=== PATIENT | male | born 1970 | race Caucasian/White ===

== ENCOUNTER 2017-06-04 13:51 | Emergency (ER) | payer OTHER ==
--- NOTE | 2017-06-04 14:32 | ED NURSING NOTES ---
Clinical Report - Nurses [facility] [address] [place] [address] 06/04/2017 13:54 Patient: JESSICA CARROLL TRIAGE Triage time 14:00 Jun 04 2017. Acuity: LEVEL 4. Chief Complaint: COUGH and (with headache). Alert. No acute distress. SEPSIS SCREEN: Sepsis Screen: negative. Infection suspected/documented. --14:06 Shawna Lee R.N. 14:00 06/04/17. BP: 174/94. HR: 63. RR: 17. O2 saturation: 100%. Temp: 97.9 F. Pain level now: 0/10. --14:06 Shawna Lee R.N. Weight: 90.7 kg stated. Height/Length: 67 inches Per Patient. BMI: 31.3. --14:01 Shawna Lee R.N. Medications None. --14:01 Shawna Lee R.N. Medication/allergy information source: the patient. --14:06 Shawna Lee R.N. Allergies None. --14:01 Shawna Lee R.N. History Arrived by private vehicle. Historian: patient. Onset. (10 days ago). He has had a headache. 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 PAST MEDICAL HX: Hypertension. Immunizations: up-to-date. SOCIAL HX: Current every day smoker (cigarette). Occasional alcohol use. History of drug use: marijuana. ABUSE ASSESSMENT: No report of abuse. SELF HARM ASSESSMENT: A self harm assessment was performed. The patient answered "no" to the question "Do you have thoughts of harming or killing yourself?". FALL RISK ASSESSMENT: Fall risk assessment completed. No fall risk identified. NUTRITIONAL RISK ASSESSMENT: The nutritional risk assessment revealed no deficiencies. FUNCTIONAL ASSESSMENT: Functional assessment: no impairments noted. LEARNING NEEDS ASSESSMENT: The learning needs assessment revealed no barriers. SKIN INTEGRITY ASSESSMENT: Skin integrity risk assessment completed. No skin integrity risk identified. --14:06 Shawna Lee R.N. PROBLEMS: Hypertension. --14:01 Shawna Lee R.N. ADDITIONAL SURGERIES: no known surgeries. Interventions ID band on patient. To treatment room. --14:06 Shawna Lee R.N. PHYSICAL ASSESSMENT Ambulatory to room. GENERAL / NEURO / PSYCH: Alert. Oriented X 4. Appears in no acute distress. HEENT: Pupils equal, round and reactive to light. Mouth within normal limits upon inspection. Mucous membranes are pink. RESPIRATORY: Respirations not labored. CVS: Capillary refill less than 2 seconds. SKIN: Skin is warm and dry. Normal skin turgor. --14:06 Shawna Lee R.N. NURSING PROGRESS NOTES Call light placed in reach. Side rails up x 1. Bed placed in lowest position. Brakes of bed on. Patient ready for evaluation- chart flagged. Patient waiting for evaluation. --14:06 Shawna Lee R.N. DISPOSITION / DISCHARGE No learning barriers present. Discharge instructions provided and reviewed with the patient. Reviewed medication(s) side effects, precautions, dosing and course information. Prescription(s) given to the patient. Patient verbalized understanding. Written instructions provided in German. The patient was discharged by the nurse practitioner. He was discharged home. He left the Emergency Department ambulatory and via private vehicle. Patient driving. --14:44 Shawna Lee R.N. 14:43 06/04/17. BP: deferred. HR: deferred. RR: deferred. O2 saturation: deferred. Temp: deferred. Pain level now deferred. --14:44 Shawna Lee R.N. Locked/Released at 06/04/2017 23:37 by Shawna Lee R.N.
--- NOTE | 2017-06-04 14:32 | ED CLINICAL REPORT ---
Clinical Report - Physicians/Mid Levels [facility] [address] [place] [address] 06/04/2017 13:54 Patient: JESSICA CARROLL Time Seen: 14:09; initial patient contact, initial documentation, patient care assumed. Arrived- By private vehicle. Historian- patient. HISTORY OF PRESENT ILLNESS Chief Complaint: COUGH. This started about 10 days ago and is still present. The patient has had a cough, a sore throat, nasal congestion, sinus pressure and sinus drainage. He has had sputum production (started with thick colored stuff, now hardly anything comes up). No difficulty breathing, chest discomfort or pain, fever or muscle aches. No nasal discharge or ear pain. Additional history - No known contact with a sick individual. No recent travel. Similar symptoms previously: None. Recent medical care: Not recently seen/assessed. REVIEW OF SYSTEMS The patient has had a pressure-like frontal headache. All systems otherwise negative, except as recorded above. PAST HISTORY See nurses notes. PROBLEMS: Hypertension. --14:01 Page-Shawna Rodriguez R.N. ADDITIONAL SURGERIES: no known surgeries. SOCIAL HISTORY Heavy tobacco smoker. Occasional alcohol use. History of occasional drug use: marijuana. Not exposed to second-hand smoke at home. No recent travel. Is a local resident. FAMILY HISTORY No significant family medical history. ADDITIONAL NOTES The nursing notes have been reviewed with agreement regarding the chief complaint, HPI, ROS, PMH and patient medications and allergies. PHYSICAL EXAM Vital Signs: 06/04/2017 14:00 BP: 174/94. HR: 63. RR: 17. O2 saturation: 100%. Temp: 97.9 F. Pain level now: 0/10. Have been reviewed as abnormal and appear to be correct. Hypertensive. Heart rate normal. Respiratory rate normal. Temperature normal. Oxygen saturation normal. Appearance: Alert. No acute distress. Head: Tenderness present to percussion/palpation of the sinuses: mild right and left frontal tenderness. Eyes: Pupils equal, round and reactive to light. Eyes normal inspection. ENT: Ears normal. Nose abnormal. Pharynx abnormal. Mild generalized pharyngeal erythema (with post nasal drip). No pharyngeal vesicles or ulcerations. No right tonsillar exudate, right tonsillar abscess, right tonsillar swelling, right peritonsillitis, left tonsillar exudate, left tonsillar abscess, left tonsillar swelling or left peritonsillitis. Uvula midline. Neck: Normal inspection. Neck supple. CVS: Normal heart rate and rhythm. Heart sounds normal. Pulses normal. Respiratory: No respiratory distress. Breath sounds abnormal. Inspiratory mild bilateral wheezes diffusely. Back: Normal inspection. Skin: Skin warm and dry. Normal skin color. No rash. Normal skin turgor. Extremities: Extremities exhibit normal ROM. No lower extremity edema. Neuro: Oriented X 3. No motor deficit. No sensory deficit. PROGRESS AND PROCEDURES Course of Care: tx options discussed with doing chest xray, pt decided no xray. Patient counseled in person regarding the patient's stable condition and diagnosis. Differential Diagnosis: Other possible considerations: flu, uri, viral illness, sinusitis, pnuemonia, bronchitis, copd, emphysema. Above considerations are based on history and physical exam. Differential diagnosis was discussed with patient. Disposition: Discharged home in good and unchanged condition (14:31). Condition: good and stable. CLINICAL IMPRESSION Acute frontal sinusitis INSTRUCTIONS Drink plenty of fluids for the next 24 hours until better. Do not smoke. Warnings: GENERAL WARNINGS: Return or contact your physician immediately if your condition worsens or changes unexpectedly, if not improving as expected, or if other problems arise. Specifically return if problem worsens. Prescription Medications: Albuterol HFA oral inhaler: inhale 1 to 2 puffs every four to six hours as needed for difficulty breathing. Dispense one (1) unit. No refills. Nasacort nasal spray: 2 sprays in each nostril once daily as needed for allergies. Dispense one (1) unit. No refills. Substitution is permissible. Augmentin 875 mg: take 1 tablet orally every 12 hours for 10 days. No refill. Follow-up: Follow up with your doctor in about five days as needed. Call for an appointment. Summary of care provided to patient. Screening today revealed the patient's blood pressure to be in the hypertensive range. The patient should follow up with a primary care provider for blood pressure management. Understanding of the discharge instructions verbalized by patient. Follow-up with: Cirilo Anand MD, [facility], , [address], [address], [place], [facility]; Miguel Palmer MD, [facility], , [address] [place], , [place], [address]; Deonte Cortez MD, Family Practice, , [facility], [address] [place], [place], [address]; Cristhian Godoy MD, [facility], , [facility], [address] [place] [address] [address], [place], [address]; Dann Owens MD, [facility], , [facility], [address] [place] [address] [address], [place], [address]; Marichuy Grande MD, [facility], , [facility], [address] [place] [address] [address], [place], [address]; [facility], [facility], , [address] [place] [address]; Miladis Terry PA-C, [facility], , [facility], [address] [place] [address], [address], [place] [address]; [facility], [facility], , [address] [place] [address], [address], [place] [address] Follow up in about three days even if well. Call for an appointment. Summary of care provided to patient. (Electronically signed by Kelli Costa A.R.N.P. 06/04/2017 17:46)
--- NOTE | 2017-06-04 14:32 | ED CLINICAL REPORT ---
Clinical Report - Physicians/Mid Levels [facility] [address] [place] [address] 06/04/2017 13:54 Patient: JESSICA CARROLL Time Seen: 14:09; initial patient contact, initial documentation, patient care assumed. Arrived- By private vehicle. Historian- patient. HISTORY OF PRESENT ILLNESS Chief Complaint: COUGH. This started about 10 days ago and is still present. The patient has had a cough, a sore throat, nasal congestion, sinus pressure and sinus drainage. He has had sputum production (started with thick colored stuff, now hardly anything comes up). No difficulty breathing, chest discomfort or pain, fever or muscle aches. No nasal discharge or ear pain. Additional history - No known contact with a sick individual. No recent travel. Similar symptoms previously: None. Recent medical care: Not recently seen/assessed. REVIEW OF SYSTEMS The patient has had a pressure-like frontal headache. All systems otherwise negative, except as recorded above. PAST HISTORY See nurses notes. PROBLEMS: Hypertension. --14:01 Page-Shawna Rodriguez R.N. ADDITIONAL SURGERIES: no known surgeries. SOCIAL HISTORY Heavy tobacco smoker. Occasional alcohol use. History of occasional drug use: marijuana. Not exposed to second-hand smoke at home. No recent travel. Is a local resident. FAMILY HISTORY No significant family medical history. ADDITIONAL NOTES The nursing notes have been reviewed with agreement regarding the chief complaint, HPI, ROS, PMH and patient medications and allergies. PHYSICAL EXAM Vital Signs: 06/04/2017 14:00 BP: 174/94. HR: 63. RR: 17. O2 saturation: 100%. Temp: 97.9 F. Pain level now: 0/10. Have been reviewed as abnormal and appear to be correct. Hypertensive. Heart rate normal. Respiratory rate normal. Temperature normal. Oxygen saturation normal. Appearance: Alert. No acute distress. Head: Tenderness present to percussion/palpation of the sinuses: mild right and left frontal tenderness. Eyes: Pupils equal, round and reactive to light. Eyes normal inspection. ENT: Ears normal. Nose abnormal. Pharynx abnormal. Mild generalized pharyngeal erythema (with post nasal drip). No pharyngeal vesicles or ulcerations. No right tonsillar exudate, right tonsillar abscess, right tonsillar swelling, right peritonsillitis, left tonsillar exudate, left tonsillar abscess, left tonsillar swelling or left peritonsillitis. Uvula midline. Neck: Normal inspection. Neck supple. CVS: Normal heart rate and rhythm. Heart sounds normal. Pulses normal. Respiratory: No respiratory distress. Breath sounds abnormal. Inspiratory mild bilateral wheezes diffusely. Back: Normal inspection. Skin: Skin warm and dry. Normal skin color. No rash. Normal skin turgor. Extremities: Extremities exhibit normal ROM. No lower extremity edema. Neuro: Oriented X 3. No motor deficit. No sensory deficit. PROGRESS AND PROCEDURES Course of Care: tx options discussed with doing chest xray, pt decided no xray. Patient counseled in person regarding the patient's stable condition and diagnosis. Differential Diagnosis: Other possible considerations: flu, uri, viral illness, sinusitis, pnuemonia, bronchitis, copd, emphysema. Above considerations are based on history and physical exam. Differential diagnosis was discussed with patient. Disposition: Discharged home in good and unchanged condition (14:31). Condition: good and stable. CLINICAL IMPRESSION Acute frontal sinusitis INSTRUCTIONS Drink plenty of fluids for the next 24 hours until better. Do not smoke. Warnings: GENERAL WARNINGS: Return or contact your physician immediately if your condition worsens or changes unexpectedly, if not improving as expected, or if other problems arise. Specifically return if problem worsens. Prescription Medications: Albuterol HFA oral inhaler: inhale 1 to 2 puffs every four to six hours as needed for difficulty breathing. Dispense one (1) unit. No refills. Nasacort nasal spray: 2 sprays in each nostril once daily as needed for allergies. Dispense one (1) unit. No refills. Substitution is permissible. Augmentin 875 mg: take 1 tablet orally every 12 hours for 10 days. No refill. Follow-up: Follow up with your doctor in about five days as needed. Call for an appointment. Summary of care provided to patient. Screening today revealed the patient's blood pressure to be in the hypertensive range. The patient should follow up with a primary care provider for blood pressure management. Understanding of the discharge instructions verbalized by patient. Follow-up with: Cirilo Anand MD, [facility], , [address], [address], [place], [facility]; Miguel Palmer MD, [facility], , [address] [place], , [place], [address]; Deonte Cortez MD, Family Practice, , [facility], [address] [place], [place], [address]; Cristhian Godoy MD, [facility], , [facility], [address] [place] [address] [address], [place], [address]; Dann Owens MD, [facility], , [facility], [address] [place] [address] [address], [place], [address]; Marichuy Grande MD, [facility], , [facility], [address] [place] [address] [address], [place], [address]; [facility], [facility], , [address] [place] [address]; Miladis Terry PA-C, [facility], , [facility], [address] [place] [address], [address], [place] [address]; [facility], [facility], , [address] [place] [address], [address], [place] [address] Follow up in about three days even if well. Call for an appointment. Summary of care provided to patient. (Electronically signed by Kelli Costa A.R.N.P. 06/04/2017 17:46)
--- NOTE | 2017-06-04 14:32 | ED NURSING NOTES ---
Clinical Report - Nurses [facility] [address] [place] [address] 06/04/2017 13:54 Patient: JESSICA CARROLL TRIAGE Triage time 14:00 Jun 04 2017. Acuity: LEVEL 4. Chief Complaint: COUGH and (with headache). Alert. No acute distress. SEPSIS SCREEN: Sepsis Screen: negative. Infection suspected/documented. --14:06 Shawna Lee R.N. 14:00 06/04/17. BP: 174/94. HR: 63. RR: 17. O2 saturation: 100%. Temp: 97.9 F. Pain level now: 0/10. --14:06 Shawna Lee R.N. Weight: 90.7 kg stated. Height/Length: 67 inches Per Patient. BMI: 31.3. --14:01 Shawna Lee R.N. Medications None. --14:01 Shawna Lee R.N. Medication/allergy information source: the patient. --14:06 Shawna Lee R.N. Allergies None. --14:01 Shawna Lee R.N. History Arrived by private vehicle. Historian: patient. Onset. (10 days ago). He has had a headache. 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 PAST MEDICAL HX: Hypertension. Immunizations: up-to-date. SOCIAL HX: Current every day smoker (cigarette). Occasional alcohol use. History of drug use: marijuana. ABUSE ASSESSMENT: No report of abuse. SELF HARM ASSESSMENT: A self harm assessment was performed. The patient answered "no" to the question "Do you have thoughts of harming or killing yourself?". FALL RISK ASSESSMENT: Fall risk assessment completed. No fall risk identified. NUTRITIONAL RISK ASSESSMENT: The nutritional risk assessment revealed no deficiencies. FUNCTIONAL ASSESSMENT: Functional assessment: no impairments noted. LEARNING NEEDS ASSESSMENT: The learning needs assessment revealed no barriers. SKIN INTEGRITY ASSESSMENT: Skin integrity risk assessment completed. No skin integrity risk identified. --14:06 Shawna Lee R.N. PROBLEMS: Hypertension. --14:01 Shawna Lee R.N. ADDITIONAL SURGERIES: no known surgeries. Interventions ID band on patient. To treatment room. --14:06 Shawna Lee R.N. PHYSICAL ASSESSMENT Ambulatory to room. GENERAL / NEURO / PSYCH: Alert. Oriented X 4. Appears in no acute distress. HEENT: Pupils equal, round and reactive to light. Mouth within normal limits upon inspection. Mucous membranes are pink. RESPIRATORY: Respirations not labored. CVS: Capillary refill less than 2 seconds. SKIN: Skin is warm and dry. Normal skin turgor. --14:06 Shawna Lee R.N. NURSING PROGRESS NOTES Call light placed in reach. Side rails up x 1. Bed placed in lowest position. Brakes of bed on. Patient ready for evaluation- chart flagged. Patient waiting for evaluation. --14:06 Shawna Lee R.N. DISPOSITION / DISCHARGE No learning barriers present. Discharge instructions provided and reviewed with the patient. Reviewed medication(s) side effects, precautions, dosing and course information. Prescription(s) given to the patient. Patient verbalized understanding. Written instructions provided in Afghan. The patient was discharged by the nurse practitioner. He was discharged home. He left the Emergency Department ambulatory and via private vehicle. Patient driving. --14:44 Shawna Lee R.N. 14:43 06/04/17. BP: deferred. HR: deferred. RR: deferred. O2 saturation: deferred. Temp: deferred. Pain level now deferred. --14:44 Shawna Lee R.N. Locked/Released at 06/04/2017 23:37 by Shawna Lee R.N.
--- NOTE | 2017-06-04 23:37 | ED DISCHARGE INSTRUCTIONS ---
Patient: JESSICA CARROLL General Instructions [facility] VisitID: [id number] [place] [id number] 46y, M Registration Date/Time: 06/04/2017 Acute frontal sinusitis INSTRUCTIONS Drink plenty of fluids for the next 24 hours until better. Do not smoke. Warnings: GENERAL WARNINGS: Return or contact your physician immediately if your condition worsens or changes unexpectedly, if not improving as expected, or if other problems arise. Specifically return if problem worsens. Prescription Medications: Albuterol HFA oral inhaler: inhale 1 to 2 puffs every four to six hours as needed for difficulty breathing. Dispense one (1) unit. No refills. Nasacort nasal spray: 2 sprays in each nostril once daily as needed for allergies. Dispense one (1) unit. No refills. Substitution is permissible. Augmentin 875 mg: take 1 tablet orally every 12 hours for 10 days. No refill. Follow-up: Follow up with your doctor in about five days as needed. Call for an appointment. Summary of care provided to patient. Screening today revealed the patient's blood pressure to be in the hypertensive range. The patient should follow up with a primary care provider for blood pressure management. Understanding of the discharge instructions verbalized by patient. Follow-up with: Cirilo Anand MD, [facility], , [address], [address] [address]; Miguel Palmer MD, [facility], , [address] [place] [address]; Deonte Cortez MD, [facility], , [facility], [address] [place] [address]; Cristhian Godoy MD, [facility], , [facility], [address] [place] [address]; Dann Owens MD, [facility], , [facility], [address] [place] [address]; Marichuy Grande MD, [facility], , [facility], [address] [place] [address] [address] [address]; [facility], [facility], , [address] [place] [address]; Miladis Terry PA-C, [facility], , [facility], [address] [place] [address], [address], [place] [address]; [facility], [facility], , [address] [place] [address], [address], [place] [address] Follow up in about three days even if well. Call for an appointment. Summary of care provided to patient. ADDITIONAL INFORMATION Sinusitis [Abx Tx] The sinuses are air-filled spaces within the bones of the face. They connect to the inside of the nose. Sinusitis is an inflammation of the tissue lining the sinus cavity. Sinus inflammation can occur during a cold or hay-fever (allergies to pollens and other particles in the air) and cause symptoms of sinus congestion and fullness. A sinus infection causes fever, headache and facial pain. There is usually green or yellow drainage from the nose or into the back of the throat (post-nasal drip). Antibiotics are prescribed to treat this condition. Home Care: Drink plenty of water, hot tea, and other liquids to stay well hydrated. This thins the mucus and promotes sinus drainage. Apply heat to the painful areas of the face. Use a towel soaked in hot water. Or, administration clerk the shower and direct the hot spray onto your face. This is a good way to inhale warm water vapor and get heat on your face at the same time. (Cover your mouth and nose with your hands so you can still breathe as you do this.) Use a vaporizer with products such as Vicks VapoRub (contains menthol) at night. Suck on peppermint, menthol or eucalyptus hard candies during the day. An expectorant containing guaifenesin (such as Robitussin), helps to thin the mucus and promote drainage from the sinuses. Ogpm-htc-[id number] decongestants may be used unless a similar medicine was prescribed. Nasal sprays work the fastest. Use one that contains phenylephrine (Mitchell-synephrine, Sinex and others) or oxymetazoline (Afrin). First blow the nose gently to remove mucus, then apply the drops. Do not use these medicines more often than directed on the label or for more than three days or symptoms may worsen. You may also use tablets containing pseudoephedrine (Sudafed). Many sinus remedies combine ingredients, which may increase side effects. Read the labels or ask the pharmacist for help. NOTE: Persons with high blood pressure should not use decongestants. They can raise blood pressure. Antihistamines are useful if allergies are a cause of your sinusitis. The mildest one is chlorpheniramine (available without a prescription). The dose for adults is 8-12mg three times a day. [NOTE: Do not use chlorpheniramine if you have glaucoma or if you are a man with trouble urinating due to an enlarged prostate.] Claritin (loratidine) is an antihistamine that causes less drowsiness and is a good alternative for daytime use. Do not use nasal rinses or irrigation during an acute sinus infection, unless advised by your doctor. Rinsing may spread the infection to other sinuses. You may use acetaminophen (Tylenol) or ibuprofen (Motrin, Advil) to control pain, unless another pain medicine was prescribed. [ NOTE: If you have chronic liver or kidney disease or ever had a stomach ulcer, talk with your doctor before using these medicines.] (Aspirin should never be used in anyone under 18 years of age who is ill with a fever. It may cause severe liver damage.) Finish the full course, even if you are feeling better after a few days. Follow Up with your doctor or this facility in one week or as instructed by our staff if not improving. Get Prompt Medical Attention if any of the following occur: Facial pain or headache becomes more severe Stiff neck Unusual drowsiness or confusion, or not acting like your normal self Swelling of the forehead or eyelids Vision problems including blurred or double vision Fever of 100.4F (38C) or higher, or as directed by your healthcare provider Seizure Albuterol Sulfate Pressurized inhalation, suspension What is this medicine? ALBUTEROL (al BYOO ter ole) is a bronchodilator. It helps open up the airways in your lungs to make it easier to breathe. This medicine is used to treat and to prevent bronchospasm. How should I use this medicine? This medicine is for inhalation through the mouth. Follow the directions on your prescription label. Take your medicine at regular intervals. Do not use more often than directed. Make sure that you are using your inhaler correctly. Ask you doctor or health care provider if you have any questions. Talk to your tool maintenance technician regarding the use of this medicine in children. Special care may be needed. What side effects may I notice from receiving this medicine? Side effects that you should report to your doctor or health family member caretaker as soon as possible: allergic reactions like skin rash, itching or hives, swelling of the face, lips, or tongue breathing problems chest pain feeling faint or lightheaded, falls high blood pressure irregular heartbeat fever muscle cramps or weakness pain, tingling, numbness in the hands or feet vomiting Side effects that usually do not require medical attention (report to your doctor or health family member caretaker if they continue or are bothersome): cough difficulty sleeping headache nervousness or trembling stomach upset stuffy or runny nose throat irritation unusual taste What may interact with this medicine? anti-infectives like chloroquine and pentamidine caffeine cisapride diuretics medicines for colds medicines for depression or for emotional or psychotic conditions medicines for weight loss including some herbal products methadone some antibiotics like clarithromycin, erythromycin, levofloxacin, and linezolid some heart medicines steroid hormones like dexamethasone, cortisone, hydrocortisone theophylline thyroid hormones What if I miss a dose? If you miss a dose, use it as soon as you can. If it is almost time for your next dose, use only that dose. Do not use double or extra doses. Where should I keep my medicine? Keep out of the reach of children. Store at room temperature between 15 and 30 degrees C (59 and 86 degrees F). The contents are under pressure and may burst when exposed to heat or flame. Do not freeze. This medicine does not work as well if it is too cold. Throw away any unused medicine after the expiration date. Inhalers need to be thrown away after the labeled number of puffs have been used or by the expiration date; whichever comes first. Ventolin HFA should be thrown away 12 months after removing from foil pouch. Check the instructions that come with your medicine. What should I tell my health care provider before I take this medicine? They need to know if you have any of the following conditions: diabetes heart disease or irregular heartbeat high blood pressure pheochromocytoma seizures thyroid disease an unusual or allergic reaction to albuterol, levalbuterol, sulfites, other medicines, foods, dyes, or preservatives or trying to get breast-feeding What should I watch for while using this medicine? Tell your doctor or health family member caretaker if your symptoms do not improve. Do not use extra albuterol. If your asthma or bronchitis gets worse while you are using this medicine, call your doctor right away. If your mouth gets dry try chewing sugarless gum or sucking hard candy. Drink water as directed. Triamcinolone Acetonide Nasal spray What is this medicine? TRIAMCINOLONE (trye am SIN oh lone) nasal spray is a corticosteroid. It is used to treat the nasal symptoms of seasonal and year round allergies. How should I use this medicine? This medicine is for use in the nose. Follow the directions on your prescription label. This medicine works best if used regularly. Do not use more often than directed. Make sure that you are using your nasal spray correctly. Ask you doctor or health care provider if you have any questions. Talk to your tool maintenance technician regarding the use of this medicine in children. While this drug may be prescribed for children as young as 2 years of age for selected conditions, precautions do apply. What side effects may I notice from receiving this medicine? Side effects that you should report to your doctor or health family member caretaker as soon as possible: allergic reactions like skin rash, itching or hives, swelling of the face, lips, or tongue change in vision dizziness infection nosebleed, burning in the nose trouble breathing, wheezing unusual bruising white patches or sores in the nose Side effects that usually do not require medical attention (report to your doctor or health family member caretaker if they continue or are bothersome): congestion cough headache nausea runny nose sneezing What may interact with this medicine? Interactions are not expected. What if I miss a dose? If you miss a dose, take it as soon as you can. If it is almost time for your next dose, take only that dose. Do not take double or extra doses. Where should I keep my medicine? Keep out of the reach of children. Store at room temperature between 20 and 25 degrees C (68 and 77 degrees F). Throw away the canister after 120 sprays or after the expiration date, whichever comes first. What should I tell my health care provider before I take this medicine? They need to know if you have any of these conditions: infection, like tuberculosis, herpes, or fungal infection recent surgery or injury of nose or sinuses taking corticosteroids by mouth an unusual or allergic reaction to triamcinolone, corticosteroids, other medicines, foods, dyes, or preservatives or trying to get breast-feeding What should I watch for while using this medicine? Check with your doctor or health family member caretaker if your symptoms do not improve in 1 week of regular use or if they get worse. Do not come in contact with people who have chickenpox or the measles while you are taking this medicine. If you do, call your doctor right away. Amoxicillin Trihydrate, Clavulanate Potassium Oral tablet What is this medicine? AMOXICILLIN; CLAVULANIC ACID (a mox i PARKER in; KENDRICK huang ic id) is a penicillin antibiotic. It is used to treat certain kinds of bacterial infections. It will not work for colds, flu, or other viral infections. How should I use this medicine? Take this medicine by mouth with a full glass of water. Follow the directions on the prescription label. Take at the start of a meal. Do not crush or chew. If the tablet has a score line, you may cut it in half at the score line for easier swallowing. Take your medicine at regular intervals. Do not take your medicine more often than directed. Take all of your medicine as directed even if you think you are better. Do not skip doses or stop your medicine early. Talk to your tool maintenance technician regarding the use of this medicine in children. Special care may be needed. What side effects may I notice from receiving this medicine? Side effects that you should report to your doctor or health family member caretaker as soon as possible: allergic reactions like skin rash, itching or hives, swelling of the face, lips, or tongue breathing problems dark urine fever or chills, sore throat redness, blistering, peeling or loosening of the skin, including inside the mouth seizures trouble passing urine or change in the amount of urine unusual bleeding, bruising unusually weak or tired white patches or sores in the mouth or throat Side effects that usually do not require medical attention (report to your doctor or health family member caretaker if they continue or are bothersome): diarrhea dizziness headache nausea, vomiting stomach upset vaginal or anal irritation What may interact with this medicine? allopurinol anticoagulants control pills methotrexate probenecid What if I miss a dose? If you miss a dose, take it as soon as you can. If it is almost time for your next dose, take only that dose. Do not take double or extra doses. Where should I keep my medicine? Keep out of the reach of children. Store at room temperature below 25 degrees C (77 degrees F). Keep container tightly closed. Throw away any unused medicine after the expiration date. What should I tell my health care provider before I take this medicine? They need to know if you have any of these conditions: bowel disease, like colitis kidney disease liver disease mononucleosis an unusual or allergic reaction to amoxicillin, penicillin, cephalosporin, other antibiotics, clavulanic acid, other medicines, foods, dyes, or preservatives or trying to get breast-feeding What should I watch for while using this medicine? Tell your doctor or health family member caretaker if your symptoms do not improve. Do not treat diarrhea with over the counter products. Contact your doctor if you have diarrhea that lasts more than 2 days or if it is severe and watery. If you have diabetes, you may get a false-positive result for sugar in your urine. Check with your doctor or health family member caretaker. control pills may not work properly while you are taking this medicine. Talk to your doctor about using an extra method of control. You have been given the following additional information: Sinusitis, Abx Tx Albuterol Sulfate Pressurized inhalation, suspension Triamcinolone Acetonide Nasal spray Amoxicillin Trihydrate, Clavulanate Potassium Oral tablet (Electronically signed by Kelli Costa A.R.NRashmiPRashmi 06/04/2017 17:46)
--- NOTE | 2017-06-04 23:37 | ED MAR SUMMARY ---
..... Medication Administration Record [facility] [address], [place] [id number] Patient: JESSICA CARROLL Visit ID: [id number] 46y, M Weight: 90.7 kg Height/Length: 67 in BMI: 31.3 ALLERGIES: None
--- NOTE | 2017-06-04 23:37 | ED MED RECONCILIATION SUMMARY ---
Patient: JESSICA CARROLL Medication Reconciliation Report [facility] VisitID: [id number] [address] [place] [address] 46y, M Registration Date/Time: 06/04/2017 Weight: 90.7 kg Height/Length: 67 in. BMI: 31.3 ALLERGIES: None The patient's Home Medications are listed below: NONE. The source(s) of the original Home Medication information: patient The following Medications were given to the patient in the Emergency Department: None. The following Medications were prescribed to the patient: Albuterol HFA oral inhaler: inhale 1 to 2 puffs every four to six hours as needed for difficulty breathing. Dispense one (1) unit. No refills. -- Kelli Costa A.R.N.P. Nasacort nasal spray: 2 sprays in each nostril once daily as needed for allergies. Dispense one (1) unit. No refills. Substitution is permissible. -- Kelli Costa A.R.N.P. Augmentin 875 mg: take 1 tablet orally every 12 hours for 10 days. No refill. -- Kelli Costa A.R.N.P.
--- NOTE | 2017-06-04 23:37 | ED DISCHARGE INSTRUCTIONS ---
Patient: JESSICA CARROLL General Instructions [facility] VisitID: [id number] [place] [id number] 46y, M Registration Date/Time: 06/04/2017 Acute frontal sinusitis INSTRUCTIONS Drink plenty of fluids for the next 24 hours until better. Do not smoke. Warnings: GENERAL WARNINGS: Return or contact your physician immediately if your condition worsens or changes unexpectedly, if not improving as expected, or if other problems arise. Specifically return if problem worsens. Prescription Medications: Albuterol HFA oral inhaler: inhale 1 to 2 puffs every four to six hours as needed for difficulty breathing. Dispense one (1) unit. No refills. Nasacort nasal spray: 2 sprays in each nostril once daily as needed for allergies. Dispense one (1) unit. No refills. Substitution is permissible. Augmentin 875 mg: take 1 tablet orally every 12 hours for 10 days. No refill. Follow-up: Follow up with your doctor in about five days as needed. Call for an appointment. Summary of care provided to patient. Screening today revealed the patient's blood pressure to be in the hypertensive range. The patient should follow up with a primary care provider for blood pressure management. Understanding of the discharge instructions verbalized by patient. Follow-up with: Cirilo nAand MD, [facility] [place], , [address], [address] [address]; Miguel Palmer MD, [facility], , [address] [place] [address]; Deonte Cortez MD, [facility], , [facility], [address] [place] [address]; Cristhian Godoy MD, [facility] [place], , [facility], [address] [place] [address]; Dann Owens MD, [facility], , [facility], [address] [place] [address]; Marichuy Grande MD, [facility] [place], , [facility], [address] [place] [address] [address] [address]; [facility], [facility] [place], , [address] [place] [address]; Miladis Terry PA-C, [facility] [place], , [facility], [address] [place] [address], [address], [place] [address]; [facility], [facility] [place], , [address] [place] [address], [address], [place] [address] Follow up in about three days even if well. Call for an appointment. Summary of care provided to patient. ADDITIONAL INFORMATION Sinusitis [Abx Tx] The sinuses are air-filled spaces within the bones of the face. They connect to the inside of the nose. Sinusitis is an inflammation of the tissue lining the sinus cavity. Sinus inflammation can occur during a cold or hay-fever (allergies to pollens and other particles in the air) and cause symptoms of sinus congestion and fullness. A sinus infection causes fever, headache and facial pain. There is usually green or yellow drainage from the nose or into the back of the throat (post-nasal drip). Antibiotics are prescribed to treat this condition. Home Care: Drink plenty of water, hot tea, and other liquids to stay well hydrated. This thins the mucus and promotes sinus drainage. Apply heat to the painful areas of the face. Use a towel soaked in hot water. Or, linux server administrator the shower and direct the hot spray onto your face. This is a good way to inhale warm water vapor and get heat on your face at the same time. (Cover your mouth and nose with your hands so you can still breathe as you do this.) Use a vaporizer with products such as Vicks VapoRub (contains menthol) at night. Suck on peppermint, menthol or eucalyptus hard candies during the day. An expectorant containing guaifenesin (such as Robitussin), helps to thin the mucus and promote drainage from the sinuses. [id number] decongestants may be used unless a similar medicine was prescribed. Nasal sprays work the fastest. Use one that contains phenylephrine (Mitchell-synephrine, Sinex and others) or oxymetazoline (Afrin). First blow the nose gently to remove mucus, then apply the drops. Do not use these medicines more often than directed on the label or for more than three days or symptoms may worsen. You may also use tablets containing pseudoephedrine (Sudafed). Many sinus remedies combine ingredients, which may increase side effects. Read the labels or ask the pharmacist for help. NOTE: Persons with high blood pressure should not use decongestants. They can raise blood pressure. Antihistamines are useful if allergies are a cause of your sinusitis. The mildest one is chlorpheniramine (available without a prescription). The dose for adults is 8-12mg three times a day. [NOTE: Do not use chlorpheniramine if you have glaucoma or if you are a man with trouble urinating due to an enlarged prostate.] Claritin (loratidine) is an antihistamine that causes less drowsiness and is a good alternative for daytime use. Do not use nasal rinses or irrigation during an acute sinus infection, unless advised by your doctor. Rinsing may spread the infection to other sinuses. You may use acetaminophen (Tylenol) or ibuprofen (Motrin, Advil) to control pain, unless another pain medicine was prescribed. [ NOTE: If you have chronic liver or kidney disease or ever had a stomach ulcer, talk with your doctor before using these medicines.] (Aspirin should never be used in anyone under 18 years of age who is ill with a fever. It may cause severe liver damage.) Finish the full course, even if you are feeling better after a few days. Follow Up with your doctor or this facility in one week or as instructed by our staff if not improving. Get Prompt Medical Attention if any of the following occur: Facial pain or headache becomes more severe Stiff neck Unusual drowsiness or confusion, or not acting like your normal self Swelling of the forehead or eyelids Vision problems including blurred or double vision Fever of 100.4F (38C) or higher, or as directed by your healthcare provider Seizure Albuterol Sulfate Pressurized inhalation, suspension What is this medicine? ALBUTEROL (al BYOO ter ole) is a bronchodilator. It helps open up the airways in your lungs to make it easier to breathe. This medicine is used to treat and to prevent bronchospasm. How should I use this medicine? This medicine is for inhalation through the mouth. Follow the directions on your prescription label. Take your medicine at regular intervals. Do not use more often than directed. Make sure that you are using your inhaler correctly. Ask you doctor or health care provider if you have any questions. Talk to your display manager regarding the use of this medicine in children. Special care may be needed. What side effects may I notice from receiving this medicine? Side effects that you should report to your doctor or health customer care voice consultant as soon as possible: allergic reactions like skin rash, itching or hives, swelling of the face, lips, or tongue breathing problems chest pain feeling faint or lightheaded, falls high blood pressure irregular heartbeat fever muscle cramps or weakness pain, tingling, numbness in the hands or feet vomiting Side effects that usually do not require medical attention (report to your doctor or health customer care voice consultant if they continue or are bothersome): cough difficulty sleeping headache nervousness or trembling stomach upset stuffy or runny nose throat irritation unusual taste What may interact with this medicine? anti-infectives like chloroquine and pentamidine caffeine cisapride diuretics medicines for colds medicines for depression or for emotional or psychotic conditions medicines for weight loss including some herbal products methadone some antibiotics like clarithromycin, erythromycin, levofloxacin, and linezolid some heart medicines steroid hormones like dexamethasone, cortisone, hydrocortisone theophylline thyroid hormones What if I miss a dose? If you miss a dose, use it as soon as you can. If it is almost time for your next dose, use only that dose. Do not use double or extra doses. Where should I keep my medicine? Keep out of the reach of children. Store at room temperature between 15 and 30 degrees C (59 and 86 degrees F). The contents are under pressure and may burst when exposed to heat or flame. Do not freeze. This medicine does not work as well if it is too cold. Throw away any unused medicine after the expiration date. Inhalers need to be thrown away after the labeled number of puffs have been used or by the expiration date; whichever comes first. Ventolin HFA should be thrown away 12 months after removing from foil pouch. Check the instructions that come with your medicine. What should I tell my health care provider before I take this medicine? They need to know if you have any of the following conditions: diabetes heart disease or irregular heartbeat high blood pressure pheochromocytoma seizures thyroid disease an unusual or allergic reaction to albuterol, levalbuterol, sulfites, other medicines, foods, dyes, or preservatives or trying to get breast-feeding What should I watch for while using this medicine? Tell your doctor or health customer care voice consultant if your symptoms do not improve. Do not use extra albuterol. If your asthma or bronchitis gets worse while you are using this medicine, call your doctor right away. If your mouth gets dry try chewing sugarless gum or sucking hard candy. Drink water as directed. Triamcinolone Acetonide Nasal spray What is this medicine? TRIAMCINOLONE (trye am SIN oh lone) nasal spray is a corticosteroid. It is used to treat the nasal symptoms of seasonal and year round allergies. How should I use this medicine? This medicine is for use in the nose. Follow the directions on your prescription label. This medicine works best if used regularly. Do not use more often than directed. Make sure that you are using your nasal spray correctly. Ask you doctor or health care provider if you have any questions. Talk to your display manager regarding the use of this medicine in children. While this drug may be prescribed for children as young as 2 years of age for selected conditions, precautions do apply. What side effects may I notice from receiving this medicine? Side effects that you should report to your doctor or health customer care voice consultant as soon as possible: allergic reactions like skin rash, itching or hives, swelling of the face, lips, or tongue change in vision dizziness infection nosebleed, burning in the nose trouble breathing, wheezing unusual bruising white patches or sores in the nose Side effects that usually do not require medical attention (report to your doctor or health customer care voice consultant if they continue or are bothersome): congestion cough headache nausea runny nose sneezing What may interact with this medicine? Interactions are not expected. What if I miss a dose? If you miss a dose, take it as soon as you can. If it is almost time for your next dose, take only that dose. Do not take double or extra doses. Where should I keep my medicine? Keep out of the reach of children. Store at room temperature between 20 and 25 degrees C (68 and 77 degrees F). Throw away the canister after 120 sprays or after the expiration date, whichever comes first. What should I tell my health care provider before I take this medicine? They need to know if you have any of these conditions: infection, like tuberculosis, herpes, or fungal infection recent surgery or injury of nose or sinuses taking corticosteroids by mouth an unusual or allergic reaction to triamcinolone, corticosteroids, other medicines, foods, dyes, or preservatives or trying to get breast-feeding What should I watch for while using this medicine? Check with your doctor or health customer care voice consultant if your symptoms do not improve in 1 week of regular use or if they get worse. Do not come in contact with people who have chickenpox or the measles while you are taking this medicine. If you do, call your doctor right away. Amoxicillin Trihydrate, Clavulanate Potassium Oral tablet What is this medicine? AMOXICILLIN; CLAVULANIC ACID (a mox i PARKER in; KENDRICK huang ic id) is a penicillin antibiotic. It is used to treat certain kinds of bacterial infections. It will not work for colds, flu, or other viral infections. How should I use this medicine? Take this medicine by mouth with a full glass of water. Follow the directions on the prescription label. Take at the start of a meal. Do not crush or chew. If the tablet has a score line, you may cut it in half at the score line for easier swallowing. Take your medicine at regular intervals. Do not take your medicine more often than directed. Take all of your medicine as directed even if you think you are better. Do not skip doses or stop your medicine early. Talk to your display manager regarding the use of this medicine in children. Special care may be needed. What side effects may I notice from receiving this medicine? Side effects that you should report to your doctor or health customer care voice consultant as soon as possible: allergic reactions like skin rash, itching or hives, swelling of the face, lips, or tongue breathing problems dark urine fever or chills, sore throat redness, blistering, peeling or loosening of the skin, including inside the mouth seizures trouble passing urine or change in the amount of urine unusual bleeding, bruising unusually weak or tired white patches or sores in the mouth or throat Side effects that usually do not require medical attention (report to your doctor or health customer care voice consultant if they continue or are bothersome): diarrhea dizziness headache nausea, vomiting stomach upset vaginal or anal irritation What may interact with this medicine? allopurinol anticoagulants control pills methotrexate probenecid What if I miss a dose? If you miss a dose, take it as soon as you can. If it is almost time for your next dose, take only that dose. Do not take double or extra doses. Where should I keep my medicine? Keep out of the reach of children. Store at room temperature below 25 degrees C (77 degrees F). Keep container tightly closed. Throw away any unused medicine after the expiration date. What should I tell my health care provider before I take this medicine? They need to know if you have any of these conditions: bowel disease, like colitis kidney disease liver disease mononucleosis an unusual or allergic reaction to amoxicillin, penicillin, cephalosporin, other antibiotics, clavulanic acid, other medicines, foods, dyes, or preservatives or trying to get breast-feeding What should I watch for while using this medicine? Tell your doctor or health customer care voice consultant if your symptoms do not improve. Do not treat diarrhea with over the counter products. Contact your doctor if you have diarrhea that lasts more than 2 days or if it is severe and watery. If you have diabetes, you may get a false-positive result for sugar in your urine. Check with your doctor or health customer care voice consultant. control pills may not work properly while you are taking this medicine. Talk to your doctor about using an extra method of control. You have been given the following additional information: Sinusitis, Abx Tx Albuterol Sulfate Pressurized inhalation, suspension Triamcinolone Acetonide Nasal spray Amoxicillin Trihydrate, Clavulanate Potassium Oral tablet (Electronically signed by Kelli Costa A.R.NRashmiPRashmi 06/04/2017 17:46)
--- NOTE | 2017-06-04 23:37 | ED MED RECONCILIATION SUMMARY ---
Patient: JESSICA CARROLL Medication Reconciliation Report [facility] VisitID: [id number] [address] [place] [address] 46y, M Registration Date/Time: 06/04/2017 Weight: 90.7 kg Height/Length: 67 in. BMI: 31.3 ALLERGIES: None The patient's Home Medications are listed below: NONE. The source(s) of the original Home Medication information: patient The following Medications were given to the patient in the Emergency Department: None. The following Medications were prescribed to the patient: Albuterol HFA oral inhaler: inhale 1 to 2 puffs every four to six hours as needed for difficulty breathing. Dispense one (1) unit. No refills. -- Kelli Costa A.R.N.P. Nasacort nasal spray: 2 sprays in each nostril once daily as needed for allergies. Dispense one (1) unit. No refills. Substitution is permissible. -- Kelli Costa A.R.N.P. Augmentin 875 mg: take 1 tablet orally every 12 hours for 10 days. No refill. -- Kelli Costa A.R.N.P.
--- NOTE | 2017-06-04 23:37 | ED MAR SUMMARY ---
..... Medication Administration Record [facility] [address], [place] [id number] Patient: JESSICA CARROLL Visit ID: [id number] 46y, M Weight: 90.7 kg Height/Length: 67 in BMI: 31.3 ALLERGIES: None
== END 2017-06-04 14:39 | disposition home or self-care (01) ==
LOC: ED SRH 13:51
DX: J01.10 Acute frontal sinusitis, unspecified (principal); I10 Essential (primary) hypertension; F17.210 Nicotine dependence, cigarettes, uncomplicated